=== PATIENT | male | born 1990 ===

== ENCOUNTER 2021-08-01 12:49 | Emergency (ER) | payer OTHER ==
[~2021-08-01] VITALS: Ht 180.3 cm; Wt 90.7 kg
[2021-08-01] MEDS ORDERED: OLANZAPINE 10 MG VIAL IM ONE ×2 (13:24→13:30)
[2021-08-01 13:42] LABS: HEMATOCRIT 44.5 % (36.7-47.1); MEAN CORPUSCULAR HEMOGLOBIN 31.8 uug (23.8-33.4); MEAN CORPUSCULAR VOLUME 90.3 fL (73.0-96.2); PLATELET COUNT (AUTO) 409 K/uL (152-348)
[2021-08-01 13:46] LABS: CARBON DIOXIDE 18 mmol/L (21-32); CHLORIDE 97 mmol/L (98-107); GLUCOSE 109 mg/dL (74-106); POTASSIUM 3.4 mmol/L (3.5-5.1); UREA NITROGEN, BLOOD 28 mg/dL (7-18)
[2021-08-01 13:54] LABS: ETHANOL 88 MG/DL (0-0)
[2021-08-01 13:59] LABS: THYROID STIMULATING HORMONE 1.071 mIU/mL (0.358-3.740)
--- NOTE | 2021-08-01 14:00 | NUR ---
[facility] place pt on 5150 hold for DTO. Pt remaines agitated, yelling, threatening, on 4 point restraines.
[2021-08-01 14:01] LABS: ALANINE AMINOTRANSFERASE 61 U/L (16-63); ALKALINE PHOSPHATASE 81 U/L (50-136); ASPARTATE AMINOTRANSFERASE 39 U/L (15-37); BILIRUBIN,DIRECT 0.3 mg/dL (0.0-0.2); BILIRUBIN,TOTAL 1.1 mg/dL (0.2-1.0); CREATINE KINASE, TOTAL 1180 U/L (39-308); TOTAL PROTEIN, SERUM 8.8 g/dL (6.4-8.2)
[2021-08-01 14:11] LABS: ACETAMINOPHEN < 2.0 ug/mL (10-30)
--- NOTE | 2021-08-01 15:00 | NUR ---
Patient is resting comfortably in bed with eyes closed, removed all restraines. Pt moves freely in bed.
[2021-08-01] MEDS ORDERED: IV NORMAL SALINE 1000 ML BAG IV ONE (15:15)
--- NOTE | 2021-08-01 18:21 | NUR ---
Pt able to drink, more awake, urinal provided.
[2021-08-01] MEDS ORDERED: THIAMINE HCL 100 MG TABLET PO ONE (19:15)
[2021-08-01] MEDS ORDERED: POTASSIUM CHLORIDE 20 MEQ TAB.PRT.SR PO ONE (19:15)
[2021-08-01] MEDS ORDERED: IV NORMAL SALINE 500 ML BAG IV ONE (19:15)
--- NOTE | 2021-08-01 19:20 | NUR ---
Handsoff report given to Mil Corrigan.
--- NOTE | 2021-08-01 20:33 | NUR ---
Arianna guzman in [facility] - 08/01/21 at 2036 by [id number] PATIENT MORE A & A X3 ABLE TO TAKE PO MEDS.
--- NOTE | 2021-08-01 20:34 | NUR ---
PATIENT MORE A & O X3 ABLE TO TAKE PO MEDS.
[2021-08-01 20:40] LABS: *BILIRUBIN,URIN 1+ (NEGATIVE); *BLOOD, URINE NEGATIVE (NEGATIVE); *CLARITY,URINE CLEAR (CLEAR); *COLOR,URINE YELLOW (YELLOW); *KETONES,URINE 3+ (NEGATIVE); *UROBILINOGEN,URINE 0.2 E.U./dl (NORMAL); LEUKOCYTE ESTERASE ,URINE NEGATIVE (NEGATIVE); NITRITE, URINE NEGATIVE (NEGATIVE); UGLUCOSE NEGATIVE (NEGATIVE)
[2021-08-01 20:48] LABS: BACTERIA,URINE NONE SEEN /HPF (NONE SEEN); MUCUS,URINE FEW /LPF (0-FEW); RBC,URINE 0-3 /HPF (0-3); SQUAMOUS EPITHELIAL CELL,UR NONE SEEN /HPF (NONE SEEN); WBC,URINE 0-3 /HPF (0-3)
[2021-08-01 20:50] LABS: *AMPHETAMINE, URINE POSITIVE (NEGATIVE); *CANNABINOID, URINE POSITIVE (NEGATIVE); *COCCAINE, URINE NEGATIVE (NEGATIVE); *OPIATE, URINE NEGATIVE (NEGATIVE); *PHENCYCLIDINE SCREEN,URINE NEGATIVE (NEGATIVE)
--- NOTE | 2021-08-01 21:17 | NUR ---
CALLED ARPITA MAGANA FROM [employer] WHO WILL COME EVAL PATIENT PER ERMD REQUEST.
[2021-08-01 21:21] LABS: CREATININE 0.8 mg/dL (0.6-1.3); POTASSIUM 3.1 mmol/L (3.5-5.1)
[2021-08-01] MEDS ORDERED: OLANZAPINE 5 MG TABLET PO ONE (22:30)
[2021-08-02] MEDS ORDERED: LORAZEPAM 2 MG/1 ML VIAL IV ONE (00:45)
--- NOTE | 2021-08-02 04:00 | NUR ---
Patient is resting comfortably in bed with eyes closed
--- NOTE | 2021-08-02 04:30 | NUR ---
In bed asleep No s/s any distress.
--- NOTE | 2021-08-02 04:45 | NUR ---
Patient is resting comfortably in bed with eyes closed
--- NOTE | 2021-08-02 05:00 | NUR ---
Patient is resting comfortably in bed with eyes closed
--- NOTE | 2021-08-02 08:30 | NUR ---
[facility] with aisha roger.
--- NOTE | 2021-08-02 09:00 | NUR ---
pt requesting to be d/mimi back to the sober living. pt states that he does not want to miss his spot in the sober living. called Nick Quintana for psych reevaluation per Dr. jeff eubanks.
--- NOTE | 2021-08-02 10:00 | NUR ---
Nick Quintana at bedside for psych eval.
--- NOTE | 2021-08-02 13:00 | NUR ---
pt fifmadiee lunch tray with good apetite.
--- NOTE | 2021-08-02 14:00 | NUR ---
pt awake, axox3, pt says that wants to go to his grandmother'home, which is close to here. pt was able to use his own cell phone multiple times to talk to people.
--- NOTE | 2021-08-02 14:03 | NUR ---
Patient discharged to home in stable condition. Written and verbal after care instructions given. Patient verbalizes understanding of instructions. Stressed follow up or return to ER for worsening s/s.pt walks in steady gait, deneis any dizziness, n/v or any other complain. pt very cooperative and appreciative of the care he recieved here. Addendum: 08/02/21 at 1405 by LESIA pt remained calm and comfortable with one to one sitter,len, in my shift.
[2021-08-02 14:11] VITALS: BP 110/77
== END 2021-08-02 14:12 | disposition home or self-care (01) ==
LOC: ER 12:52
DX: F15.129 Other stimulant abuse with intoxication, unspecified (principal); F10.10 Alcohol abuse, uncomplicated; Y90.4 Blood alcohol level of 80-99 mg/100 ml; M62.82 Rhabdomyolysis; E87.2 Acidosis; E87.6 Hypokalemia; R00.0 Tachycardia, unspecified; Z20.822 Contact with and (suspected) exposure to COVID-19
CPT/HCPCS: 36415; 84443; 85025; 93005; A4663; G0480; J2358; J7030

== ENCOUNTER 2022-05-18 18:18 | Emergency (ER) | payer OTHER ==
[~2022-05-18] VITALS: Ht 177.8 cm; Wt 90.7 kg
[2022-05-18 20:40] LABS: MEAN CORPUSCULAR HEMOGLOBIN 31.2 uug (23.8-33.4); MEAN CORPUSCULAR VOLUME 88.5 fL (73.0-96.2); PLATELET COUNT (AUTO) 264 K/uL (152-348)
[2022-05-18 20:46] LABS: ETHANOL < 3 MG/DL (0-0)
[2022-05-18 20:50] LABS: ALANINE AMINOTRANSFERASE 167 U/L (16-63); ALKALINE PHOSPHATASE 99 U/L (50-136); ASPARTATE AMINOTRANSFERASE 79 U/L (15-37); BILIRUBIN,DIRECT 0.2 mg/dL (0.0-0.2); BILIRUBIN,TOTAL 0.7 mg/dL (0.2-1.0); CARBON DIOXIDE 26 mmol/L (21-32); CHLORIDE 98 mmol/L (98-107); CREATININE 0.8 mg/dL (0.6-1.3); GLUCOSE 98 mg/dL (74-106); POTASSIUM 3.3 mmol/L (3.5-5.1); TOTAL PROTEIN, SERUM 8.7 g/dL (6.4-8.2); UREA NITROGEN, BLOOD 9 mg/dL (7-18)
[2022-05-18 20:51] LABS: NEUTROPHILS % (MANUAL) 0 % (42-75)
[2022-05-18 20:52] LABS: ACETAMINOPHEN < 2.0 ug/mL (10-30)
[2022-05-18 21:26] LABS: *BILIRUBIN,URIN NEGATIVE (NEGATIVE); *BLOOD, URINE NEGATIVE (NEGATIVE); *CLARITY,URINE CLEAR (CLEAR); *COLOR,URINE AMBER (YELLOW); *KETONES,URINE NEGATIVE (NEGATIVE); *UROBILINOGEN,URINE 0.2 E.U./dl (NORMAL); LEUKOCYTE ESTERASE ,URINE NEGATIVE (NEGATIVE); NITRITE, URINE NEGATIVE (NEGATIVE); UGLUCOSE NEGATIVE (NEGATIVE)
[2022-05-18 21:37] LABS: BACTERIA,URINE NONE SEEN /HPF (NONE SEEN); RBC,URINE NONE SEEN /HPF (0-3); SQUAMOUS EPITHELIAL CELL,UR NONE SEEN /HPF (NONE SEEN)
[2022-05-18 21:38] LABS: MUCUS,URINE FEW /LPF (0-FEW)
[2022-05-18 21:40] LABS: *AMPHETAMINE, URINE POSITIVE (NEGATIVE); *CANNABINOID, URINE POSITIVE (NEGATIVE); *COCCAINE, URINE NEGATIVE (NEGATIVE); *OPIATE, URINE NEGATIVE (NEGATIVE); *PHENCYCLIDINE SCREEN,URINE NEGATIVE (NEGATIVE)
[2022-05-18] MEDS ORDERED: diphenhydrAMINE 50 MG/1 ML VIAL ONE (23:34)
[2022-05-18] MEDS ORDERED: HALOPERIDOL LACTATE 5 MG/1 ML VIAL ONE (23:34)
[2022-05-18] MEDS ORDERED: LORAZEPAM 2 MG/1 ML VIAL ONE (23:35)
[2022-05-18] MEDS: diphenhydrAMINE 50 MG/1 ML VIAL IM ONE (23:46)
[2022-05-18] MEDS: HALOPERIDOL LACTATE 5 MG/1 ML VIAL IM ONE (23:46)
[2022-05-18] MEDS: LORAZEPAM 2 MG/1 ML VIAL IM ONE (23:46)
--- NOTE | 2022-05-19 00:21 | NUR ---
removed 4 point retraints. pt is currently sleeping in bed.
[2022-05-19] MEDS ORDERED: POTASSIUM BICARBONATE/CIT AC 25 MEQ TABLET.EFF ONE (02:03)
[2022-05-19] MEDS: POTASSIUM BICARBONATE/CIT AC 25 MEQ TABLET.EFF PO ONE (02:07)
--- NOTE | 2022-05-19 08:00 | NUR ---
Gave pt breakfast tray.
--- NOTE | 2022-05-19 09:09 | NUR ---
Called Nick for pt evaluation. Nick stated to call the SW to do the evaluation. Called Joellen, she will check with her supervisor hanging and trimming and call back.
--- NOTE | 2022-05-19 09:20 | NUR ---
SW can not do eval. Called Art again, he will come in.
--- NOTE | 2022-05-19 11:54 | NUR ---
Social Work consult was requested for a patient in the emergency room. Patient is a 31 year old male admitted to the emergency room for a suicide gesture. Pt. reportedly scratched his wrist with a paper clip while intoxicated. Toxicology report indicates that patient used cannabinoids and amphetamines. SW assessed suicidal or homicidal ideation. Patient denied current suicidal or homicidal ideation. Patient states that he was living in [facility] [address] [place] [address] for 6 months. SW asked if patient is wanted transfer to [facility] but the patient declined. Patient states that he wants to be discharged back to [facility]. SW confirmed with Marcia ([phone]) at [facility] that the patient can be discharged back to that facility. Marcia ([phone]) stated that he needed to get to the facility today by 3pm because it is a court ordered program. Marcia ([phone]) stated that he needed to go to a different location for [facility] at [address] [place] [address] but that she would arrange this. Patient will return there with a Tap card. Report given to Jay CUETO.
--- NOTE | 2022-05-19 12:08 | NUR ---
Gave pt d/c instructions, pt verbalized understanding. Also gave pt N95 and taxi voucher --- called for pick-up.
[2022-05-19 12:18] VITALS: BP 143/85
== END 2022-05-19 12:19 | disposition home or self-care (01) ==
LOC: ER 18:19
DX: F23 Brief psychotic disorder (principal); F15.10 Other stimulant abuse, uncomplicated; U07.1 COVID-19; R03.0 Elevated blood-pressure reading, without diagnosis of hypertension; R74.01 Elevation of levels of liver transaminase levels; E87.6 Hypokalemia
CPT/HCPCS: 36415; 71045; 80048; 80076; 80299; 80307; 80320; 81001; 85007; 85025; 87426; 96372 ×2; 99285; J1200; J1630; J2060; 70030-TC; A4663; C1758; G0480

== ENCOUNTER 2024-07-08 14:39 | Emergency (ER) | payer OTHER ==
[~2024-07-08] VITALS: Ht 175.3 cm; Wt 90.7 kg
[2024-07-08 15:17] LABS: BASOPHILS # (AUTO) 0.1 K/UL (0.0-0.2); BASOPHILS % (AUTO) 0.6 % (0.0-2.0); EOSINOPHILS # (AUTO) 0.2 K/uL (0.0-0.7); EOSINOPHILS % (AUTO) 2.3 % (0.0-7.0); HEMATOCRIT 40.8 % (36.7-47.1); HEMOGLOBIN 14.1 g/dL (12.5-16.3); LYMPHOCYTES # (AUTO) 2.9 K/uL (0.8-4.8); LYMPHOCYTES % (AUTO) 31.6 % (20.5-51.5); MEAN CORPUSCULAR HEMOGLOBIN 32.2 uug (23.8-33.4); MEAN CORPUSCULAR HGB CONC 35 g/dL (32.5-36.3); MEAN CORPUSCULAR VOLUME 92.9 fL (73.0-96.2); MONOCYTES # (AUTO) 0.9 K/uL (0.1-1.30); MONOCYTES % (AUTO) 9.6 % (0.0-11.0); NEUTROPHILS # (AUTO) 5.2 K/uL (1.8-8.9); NEUTROPHILS % (AUTO) 55.9 % (38.5-71.5); PLATELET COUNT (AUTO) 342 K/uL (152-348); RED BLOOD CELL COUNT(AUTO) 4.39 MIL/uL (4.06-5.63); RED CELL DISTRIBUTION WIDTH 12.1 % (12.1-16.2); WHITE BLOOD COUNT (AUTO) 9.2 K/uL (3.6-10.2)
[2024-07-08 15:21] LABS: DIFFERENTIAL COMMENT 1
[2024-07-08 15:25] LABS: CALCIUM 8.9 mg/dL (8.5-10.1); CARBON DIOXIDE 24 mmol/L (21-32); CHLORIDE 105 mmol/L (98-107); CREATININE 0.9 mg/dL (0.6-1.3); GLUCOSE 94 mg/dL (74-106); POTASSIUM 3.6 mmol/L (3.5-5.1); SODIUM SERUM 143 mmol/L (136-145); UREA NITROGEN, BLOOD 35 mg/dL (7-18)
[2024-07-08 15:38] LABS: ETHANOL 74 MG/DL (0-10)
[2024-07-08 15:39] LABS: ACETAMINOPHEN < 2.0 ug/mL (10-30); ALANINE AMINOTRANSFERASE 46 U/L (16-63); ALBUMIN 4.2 g/dL (3.4-5.0); ALKALINE PHOSPHATASE 60 U/L (50-136); ASPARTATE AMINOTRANSFERASE 26 U/L (15-37); BILIRUBIN,DIRECT 0.2 mg/dL (0.0-0.2); BILIRUBIN,TOTAL 0.9 mg/dL (0.2-1.0); TOTAL PROTEIN, SERUM 8.1 g/dL (6.4-8.2)
[2024-07-08 17:46] LABS: *BILIRUBIN,URIN NEGATIVE (NEGATIVE); *BLOOD, URINE NEGATIVE (NEGATIVE); *CLARITY,URINE CLEAR (CLEAR); *COLOR,URINE YELLOW (YELLOW); *KETONES,URINE TRACE (NEGATIVE); *PROTEIN,URINE 1+ (NEGATIVE); *UROBILINOGEN,URINE 0.2 E.U./dl (NORMAL); LEUKOCYTE ESTERASE ,URINE NEGATIVE (NEGATIVE); NITRITE, URINE NEGATIVE (NEGATIVE); UGLUCOSE NEGATIVE (NEGATIVE)
[2024-07-08 17:48] LABS: RBC,URINE 0-3 /HPF (0-3); WBC,URINE 0-3 /HPF (0-3)
[2024-07-08 18:00] LABS: *AMPHETAMINE, URINE POSITIVE (NEGATIVE); *BARBITURATE, URINE NEGATIVE (NEGATIVE); *BENZODIAZEPINE, URINE NEGATIVE (NEGATIVE); *CANNABINOID, URINE POSITIVE (NEGATIVE); *COCCAINE, URINE NEGATIVE (NEGATIVE); *OPIATE, URINE NEGATIVE (NEGATIVE); *PHENCYCLIDINE SCREEN,URINE NEGATIVE (NEGATIVE); FENTANYL, URINE POSITIVE (NEGATIVE)
[2024-07-08 22:50] VITALS: BP 139/70; O2SAT 98
== END 2024-07-08 22:50 ==
LOC: ER 14:39
DX: U07.1 COVID-19 (principal); F15.10 Other stimulant abuse, uncomplicated; F10.10 Alcohol abuse, uncomplicated
CPT/HCPCS: 36415; 70450; 85025; A4606; A4663; G0480